=== PATIENT | male | born 1940 | race Caucasian/White ===

== ENCOUNTER 2022-07-06 04:18 | Emergency (ER) | payer MEDICARE, OTHER ==
[~2022-07-06] VITALS: Ht 165.1 cm; Wt 77.6 kg
--- NOTE | 2022-07-06 04:30 | NUR ---
TO ER BED 9. [id number] [facility] FOR R ARM SKIN TEAR S/P "UNWITNESSED FALL FROM BED". PT IS CONFUSED. HX ALZHEIMERS. RR EVEN AND NON LABORED. SAFETY PRECAUTIONS IN PLACE. CONNECTED TO POX AND HEART MONITOR
--- NOTE | 2022-07-06 04:33 | NUR ---
[facility]ILL [facility] [phone]
--- NOTE | 2022-07-06 07:15 | NUR ---
[employer] PT FROM [facility] pt asleepy no sob or any distress skin warm and dry to touch
--- NOTE | 2022-07-06 07:45 | NUR ---
[facility] ETA 30 MINS BACK TO [phone]. [facility].
--- NOTE | 2022-07-06 08:25 | NUR ---
Patient discharged to home in stable condition. Written and verbal after care instructions given. Patient verbalizes understanding of instruction.[facility]
[2022-07-06 08:29] VITALS: BP 145/57
== END 2022-07-06 11:20 ==
LOC: ER 04:25
DX: S51.811A Laceration without foreign body of right forearm, initial encounter (principal); R51.9 Headache, unspecified; I10 Essential (primary) hypertension; W06.XXXA Fall from bed, initial encounter; Y93.89 Activity, other specified; Y92.89 Other specified places as the place of occurrence of the external cause; Y99.8 Other external cause status
CPT/HCPCS: 70450-TC; 72125-TC